=== PATIENT | male | born 1990 | race Caucasian/White ===

== ENCOUNTER 2023-11-27 10:10 | Emergency (ER) | payer SELFPAY ==
[~2023-11-27] VITALS: Ht 180.3 cm; Wt 88.5 kg
[2023-11-27 10:17] VITALS: BP 92/56; PULSE 112; RESP 16; TEMP 99.4; O2SAT 99
[2023-11-27] MEDS ORDERED: FAMOTIDINE 20 MG/2 ML VIAL IVP ONE (11:15)
[2023-11-27] MEDS ORDERED: METOCLOPRAMIDE 10 MG/2 ML INJ VIAL IVP ONE (11:15)
[2023-11-27] MEDS ORDERED: NACL 0.9% 1,000 ML IV SCH (11:15)
[2023-11-27 11:43] LABS: BASOPHILS % (AUTO) 0.4 % (0.0-2.0); EOSINOPHILS % (AUTO) 0.2 % (0.0-4.0); HEMATOCRIT 41.3 % (36-52); HEMOGLOBIN 14.3 g/dL (12.0-18.0); LYMPHOCYTES # (AUTO) 0.7 K/uL (2.0-11.5); LYMPHOCYTES % (AUTO) 10.9 % (20.5-51.1); MEAN CORPUSCULAR HEMOGLOBIN 31 pg (27-31); MEAN CORPUSCULAR HGB CONC 35 g/dL (33-37); MEAN CORPUSCULAR VOLUME 88.3 fL (80-94); MONOCYTES # (AUTO) 0.8 K/uL (0.8-1.0); MONOCYTES % (AUTO) 11.9 % (1.7-9.3); NEUTROPHILS % (AUTO) 76.6 % (42.2-75.2); PLATELET COUNT (AUTO) 146 K/uL (140-450); RED BLOOD CELL COUNT(AUTO) 4.67 MIL/uL (4.20-6.10); RED CELL DISTRIBUTION WIDTH 13.4 % (11.6-13.7); WHITE BLOOD COUNT (AUTO) 6.5 K/uL (4.8-10.8)
[2023-11-27 11:59] LABS: CALCIUM 8.8 mg/dL (8.5-10.1); CARBON DIOXIDE 26.6 mmol/L (21-32); CREATININE 1.1 mg/dL (0.6-1.3); POTASSIUM 3.6 mmol/L (3.5-5.1)
[2023-11-27 12:03] LABS: BILIRUBIN,DIRECT 0.1 mg/dL (0.0-0.3); TOTAL BILIRUBIN 0.7 mg/dL (0.0-1.0); TOTAL PROTEIN, SERUM 8.2 g/dL (6.4-8.2)
[2023-11-27 12:22] VITALS: BP 122/56; PULSE 106; RESP 15; TEMP 98.8; O2SAT 99
[2023-11-27] MEDS ORDERED: FAMO-92 PO (12:54)
[2023-11-27] MEDS ORDERED: ONDA-188 PO (12:54)
== END 2023-11-27 13:26 | disposition home or self-care (01) ==
LOC: MED 10:10
DX: K21.9 Gastro-esophageal reflux disease without esophagitis (principal); R06.6 Hiccough; Z79.899 Other long term (current) drug therapy
CPT/HCPCS: 36415; 71045; 80048; 80076; 83690; 85025; 96361; 96374; 96375; 99284; J2765; J3490; J7030